=== PATIENT | female | born 1950 | race Caucasian/White ===

== ENCOUNTER 2018-04-29 17:02 | Emergency (ER) | payer OTHER ==
[~2018-04-29] VITALS: Ht 152.4 cm; Wt 56.7 kg
[~2018-04-29 17:02] MED LIST: CLON2TAB PO
[2018-04-29 17:07] VITALS: BP 152/79
--- NOTE | 2018-04-29 17:11 | NUR ---
EKG IN PROGRESS BY MARIA LUISA EDOUARD
--- NOTE | 2018-04-29 17:11 | NUR ---
67 Y/O F PRESENTS TO THE ED W/C/O CHEST PRESSURE ASSOCIATED WITH DIZZINESS AND SOB X 1 WEEK. REPORTS BEING UNDER A LOT STRESS RECENTLY R/T WORK. DENIES N/V; SKIN IS INTACT, PINK/WARM/DRY; AAOX4, PERRL, WITH EVEN AND STEADY GAIT; LUNGS CLEAR BL, BREATHING UNLABORED; HR EVEN AND REGULAR, BL PERIPHERAL PULSES PRESENT; BS ACTIVE X4, NO TENDERNESS TO PALPATION, NO HEPATOSPLENOMEGALLY PALPATED, RESONANT TO PERCUSSION; PT DENIES ANY FEVER, CP, SOB, OR COUGH AT THIS TIME; PT STATES 6/10 PAIN AT THIS TIME; VSS; PATIENT POSITIONED FOR COMFORT; HOB ELEVATED; BEDRAILS UP X2; BED DOWN.
--- NOTE | 2018-04-29 17:14 | NUR ---
AMBULATES TO BED 12 W/ STEADY GAIT
[2018-04-29] MEDS ORDERED: ALPRAZolam 0.5 MG TAB PO ONE (17:20)
[2018-04-29 18:03] LABS: BASOPHILS % (AUTO) 0.5 % (0.0-2.0); EOSINOPHILS # (AUTO) 0.2 K/uL (0-0.4); HEMATOCRIT 41.5 % (36-48); HEMOGLOBIN 13.7 g/dL (12.0-16.0); LYMPHOCYTES % (AUTO) 31.4 % (20.5-51.1); MEAN CORPUSCULAR HEMOGLOBIN 31 pg (27-31); MEAN CORPUSCULAR HGB CONC 33 g/dL (33-37); MEAN CORPUSCULAR VOLUME 94.7 fL (80-94); MONOCYTES # (AUTO) 0.7 K/uL (0.8-1.0); MONOCYTES % (AUTO) 7.3 % (1.7-9.3); NEUTROPHILS # (AUTO) 5.6 K/uL (1.8-7.7); NEUTROPHILS % (AUTO) 58.8 % (42.2-75.2); PLATELET COUNT (AUTO) 248 K/uL (140-450); RED BLOOD CELL COUNT(AUTO) 4.38 MIL/uL (4.20-5.40); RED CELL DISTRIBUTION WIDTH 13.2 % (11.6-13.7); WHITE BLOOD COUNT (AUTO) 9.4 K/uL (4.8-10.8)
--- NOTE | 2018-04-29 18:10 | NUR ---
PT APPEARS TO BE SLEEPING. RR EVEN AND UNLABORED. WILL CONTINUE TO MONITOR
[2018-04-29 18:30] LABS: ALBUMIN 3.8 g/dL (3.4-5.0); ANION GAP 10.2 (8-16); CARBON DIOXIDE 29.8 mmol/L (21-32); CREATININE 0.7 mg/dL (0.6-1.3); TOTAL BILIRUBIN 0.9 mg/dL (0.0-1.0)
--- NOTE | 2018-04-29 19:03 | NUR ---
Patient discharged with v/s stable. Written and verbal after care instructions given and explained. Patient alert, oriented and verbalized understanding of instructions. Ambulatory with steady gait. All questions addressed prior to discharge. ID band removed. Patient advised to follow up with PMD. Rx of VISTARIL given. Patient educated on indication of medication including possible reaction and side effects. Opportunity to ask questions provided and answered.
[2018-04-29 19:04] VITALS: BP 150/80
[2018-04-29 19:25] LABS: PROTHROMBIN TIME 9.9 secs (10.8-13.4)
== END 2018-04-29 19:03 | disposition home or self-care (01) ==
LOC: MED 17:02
DX: F41.0 Panic disorder [episodic paroxysmal anxiety] (principal); R03.0 Elevated blood-pressure reading, without diagnosis of hypertension; Z79.899 Other long term (current) drug therapy
CPT/HCPCS: 36415; 36600; 71045; 80053; 82803; 83880; 84484; 85025; 85379; 85610; 85730; 93005; 99285; Q0092

== ENCOUNTER 2018-06-05 14:20 | Emergency (ER) | payer OTHER ==
[~2018-06-05] VITALS: Ht 152.4 cm; Wt 54.4 kg
[2018-06-05 14:28] VITALS: BP 128/85
--- NOTE | 2018-06-05 14:30 | NUR ---
URINE CUP HANDED TO PT
--- NOTE | 2018-06-05 14:33 | NUR ---
PT PRESENTS TO ED W C/O DYSURIA X 1 DAY. PT ALSO C/O SORE THROAT AND RIGHT EAR PAIN X 1 DAY. PT DENIES ANY OTHER SYMPTOMS. DENIES ANY MEDICAL HX. PT REPORTS TAKING OTC AZO WITH NO RELIEF. RIGHT EAR FREE OF ANY FOREIGN BODY. THROAT IS CLEAR. DENIES SOB. ALL VSS. PENDING MD MCKINNON.
[2018-06-05] MEDS ORDERED: LEVOFLOXACIN 500 MG TAB PO ONE (15:15)
[2018-06-05] MEDS ORDERED: PHENAZOPYRIDINE 100 MG TAB PO ONE (15:15)
--- NOTE | 2018-06-05 15:30 | NUR ---
Patient discharged with v/s stable. Written and verbal after care instructions given and explained. Patient alert, oriented and verbalized understanding of instructions. Ambulatory with steady gait. All questions addressed prior to discharge. ID band removed. Patient advised to follow up with PMD. Rx of PYRIDUM, CIPRO given. Patient educated on indication of medication including possible reaction and side effects. Opportunity to ask questions provided and answered.
[2018-06-05 15:31] VITALS: BP 132/82
== END 2018-06-05 15:30 | disposition home or self-care (01) ==
LOC: MED 14:20
DX: N39.0 Urinary tract infection, site not specified (principal)
CPT/HCPCS: 81002; 81025; 99283

== ENCOUNTER 2019-05-30 05:19 | Emergency (ER) | payer OTHER ==
[~2019-05-30] VITALS: Ht 152.4 cm; Wt 59.6 kg
--- NOTE | 2019-05-30 05:38 | NUR ---
TO ER BED 11
--- NOTE | 2019-05-30 05:40 | NUR ---
68/F PRESENTED TO ED WITH C/O LOWER ABD PRESSURE, URINARY FREQUENCY, URGENCY, DISCOMFORT, BURNING PAIN /. PT STATES SHE WENT TO URGENT CARE YESTERDAY MORNING AND TX FOR UTI. PT RECEIVED AMOXICILLIN AND TOOK FIRST DOSE. PT WAS ALSO GIVEN AZO TO HELP WITH DISCOMFORT BUT REPORTS NO RELIEF. VSS. DENIES PAST MED HX. DENIES RX. DENIES ALLERGIES. WILL CONTINUE TO MONITOR.
--- NOTE | 2019-05-30 05:45 | NUR ---
URINE COLLECTED - VOIDED
[2019-05-30] MEDS: KETOROLAC 30 MG/ML VIAL IM ONE (05:50)
[2019-05-30] MEDS: PHENAZOPYRIDINE 100 MG TAB PO ONE (07:10)
--- NOTE | 2019-05-30 07:15 | NUR ---
Patient discharged with v/s stable. Written and verbal after care instructions given and explained. Patient alert, oriented and verbalized understanding of instructions. Ambulatory with steady gait. All questions addressed prior to discharge. ID band removed. Patient advised to follow up with PMD. Rx of PHENAZOPYRIDINE given. Patient educated on indication of medication including possible reaction and side effects. Opportunity to ask questions provided and answered.
== END 2019-05-30 07:15 | disposition home or self-care (01) ==
LOC: MED 05:19
DX: N39.0 Urinary tract infection, site not specified (principal); Z79.899 Other long term (current) drug therapy
CPT/HCPCS: 81002; 96372; 99283; J1885

== ENCOUNTER 2019-05-31 16:17 | Emergency (ER) | payer OTHER ==
[~2019-05-31] VITALS: Ht 152.4 cm; Wt 59.4 kg
[2019-05-31 16:20] VITALS: BP 175/83
--- NOTE | 2019-05-31 16:34 | NUR ---
WAIT IN LOBBY
--- NOTE | 2019-05-31 17:18 | NUR ---
PATIENT AMBULATED TO BED 9
--- NOTE | 2019-05-31 17:32 | NUR ---
PT SEEN AT URGENT CARE X3 DAYS AGO PRESCIBED CIPRO FOR BLADDER INFECTION. BROUGHT TO ER LAST NIGHT FOR ABD PAIN, GIVEN PAIN MEDS WITH NO RELIEF. PT C/O 06/29 ABD PAIN THAT IS NOW RADIATING TO LOWER BACK. BURNING UPON URINATION, NO HESITENCY NORMAL FREQUENCY. STATES SHE HAD A FEVER LAST NIGHT NONE TODAY. PT HAS NOT TAKEN ANY MEDS FOR PAIN. ABD SOFT, ROUND, NONTENDER. PT SITTING IN BED, RELAXED VSS. MEDHX: DENIES
[2019-05-31] MEDS: SODIUM CHLORIDE FLUSH 10 ML SYR IVF STA ×2 (17:53→18:15)
[2019-05-31 18:24] LABS: BASOPHILS # (AUTO) 0.2 K/uL (0.00-0.22); BASOPHILS % (AUTO) 1.1 % (0.0-2.0); EOSINOPHILS # (AUTO) 0.1 K/uL (0-0.4); EOSINOPHILS % (AUTO) 0.9 % (0.0-4.0); HEMATOCRIT 38.8 % (36-48); LYMPHOCYTES # (AUTO) 1.8 K/uL (2.5-16.5); LYMPHOCYTES % (AUTO) 12.8 % (20.5-51.1); MEAN CORPUSCULAR HEMOGLOBIN 32 pg (27-31); MEAN CORPUSCULAR HGB CONC 34 g/dL (33-37); MEAN CORPUSCULAR VOLUME 93.7 fL (80-94); MONOCYTES # (AUTO) 1.2 K/uL (0.8-1.0); MONOCYTES % (AUTO) 8.4 % (1.7-9.3); NEUTROPHILS % (AUTO) 76.8 % (42.2-75.2); PLATELET COUNT (AUTO) 243 K/uL (140-450); RED BLOOD CELL COUNT(AUTO) 4.14 MIL/uL (4.20-5.40); RED CELL DISTRIBUTION WIDTH 13.2 % (11.6-13.7); WHITE BLOOD COUNT (AUTO) 14.4 K/uL (4.8-10.8)
[2019-05-31] MEDS ORDERED: KETOROLAC 30 MG/ML VIAL IVP ONE (18:35)
[2019-05-31 18:53] LABS: ANION GAP 13.7 (8-16); CARBON DIOXIDE 25.9 mmol/L (21-32); CREATININE 0.8 mg/dL (0.6-1.3); POTASSIUM 3.6 mmol/L (3.5-5.1)
[2019-05-31 18:54] LABS: ALBUMIN 3.4 g/dL (3.4-5.0)
[2019-05-31 19:18] LABS: BILIRUBIN,URINE NEGATIVE (NEGATIVE); BLOOD, URINE 3+ (NEGATIVE); COLOR,URINE YELLOW (YELLOW); LEUKOCYTE ESTERASE ,URINE 3+ (NEGATIVE); NITRITE, URINE NEGATIVE (NEGATIVE); UGLUCOSE NEGATIVE (NEGATIVE)
[2019-05-31 19:19] LABS: APPEARANCE,URINE CLOUDY (CLEAR)
[2019-05-31 19:32] LABS: RBC,URINE >100 /HPF (0-5)
--- NOTE | 2019-05-31 19:56 | NUR ---
PT TAKEN TO CT
--- NOTE | 2019-05-31 20:06 | NUR ---
PT MOVED TO CHAIR SITTING IN HALLWAY. VSS
--- NOTE | 2019-05-31 20:10 | NUR ---
PT AMBULATED TO BED #2
--- NOTE | 2019-05-31 20:15 | NUR ---
PT AMBULATED TO THE RESTROOM INDEPENDANTLY
--- NOTE | 2019-05-31 20:16 | NUR ---
CHECKED ON PT. INSTRUCTED HER NOT TO TAKE THE MEDS FROM HOME UNTILL SEEN BY . PT C/O PAIN 04/29. STATES WAS GIVEN PAIN SHOT AT THE LOBBY AT 1630. PT RESTING AT THE BED. WILL CONTINUE TO MONITOR PT.
--- NOTE | 2019-05-31 20:29 | NUR ---
Dr. Solitario examining patient.
[2019-05-31] MEDS ORDERED: NACL 0.9% 1,000 ML IV ONE (20:45)
[2019-05-31] MEDS ORDERED: cefTRIAXone 1,000 MG VIAL ONE (20:48)
--- NOTE | 2019-05-31 21:21 | NUR ---
REPORT GIVEN TO PM RN. PT STABLE.
[2019-05-31] MEDS ORDERED: MORPHINE SULFATE 2 MG/ML SYR IVP ONE (22:25)
--- NOTE | 2019-05-31 22:42 | NUR ---
PATIENT IS SLEEPING AT THIS TIME.
--- NOTE | 2019-05-31 23:06 | NUR ---
PATIENT AMBULATED TO BATHROOM.
[2019-06-01 00:10] VITALS: BP 141/82
--- NOTE | 2019-06-01 00:10 | NUR ---
Patient discharged with v/s stable. Written and verbal after care instructions given and explained. Patient alert, oriented and verbalized understanding of instructions. Ambulatory with steady gait. All questions addressed prior to discharge. ID band removed. Patient advised to follow up with PMD. Rx of CEPHALEXIN, TRAMADOL given. Patient educated on indication of medication including possible reaction and side effects. Opportunity to ask questions provided and answered.
--- NOTE | 2019-06-03 13:33 | NUR ---
Urine cultures positive and shown to Dr. Craig. Patient sent home home Cephalexin and C&S does not show up Keflex. Dr. Craig is writing a new prescription for Bactrim DS BID x10 days. Pt contacted and spoke to patient. I advised the patient about her results and let her know I would be calling in a prescription for new abx to the pharmacy of her choice. Pharmacy pt would like rx called to [facility] [phone]. I advised patient to follow up with pharmacy in approximately 30 minutes to get an update on her rx. Pt verbalized understanding. Rx called into pharmacist.
== END 2019-06-01 00:10 | disposition home or self-care (01) ==
LOC: MED 16:17
DX: N30.90 Cystitis, unspecified without hematuria (principal); Z79.899 Other long term (current) drug therapy
CPT/HCPCS: 36415; 74176; 80053; 81001; 81025; 83690; 85025; 87086; 87186; 96365; 96375; 99284; J0696; J1885; J2270; J7030

== ENCOUNTER 2020-06-22 07:14 | Emergency (ER) | payer OTHER, SELFPAY ==
[~2020-06-22] VITALS: Ht 152.4 cm; Wt 58.1 kg
[2020-06-22 07:26] VITALS: BP 167/89
[2020-06-22] MEDS ORDERED: ACETAMINOPHEN 325 MG TAB PO ONE (07:40)
[2020-06-22] MEDS ORDERED: IBUPROFEN 600 MG TAB PO ONE (07:40)
[2020-06-22] MEDS ORDERED: ONDANSETRON 4 MG ODT PO ONE (07:40)
[2020-06-22] MEDS ORDERED: IBUPROFEN 600 MG TAB ONE (07:45)
[2020-06-22] MEDS ORDERED: ACETAMINOPHEN 325 MG TAB ONE (07:46)
[2020-06-22] MEDS ORDERED: ONDANSETRON 4 MG ODT ONE (07:46)
[2020-06-22 08:23] LABS: BASOPHILS # (AUTO) 0.1 K/uL (0.00-0.22); EOSINOPHILS # (AUTO) 0.2 K/uL (0-0.4); EOSINOPHILS % (AUTO) 2.5 % (0.0-4.0); HEMATOCRIT 40.9 % (36-48); HEMOGLOBIN 13.7 g/dL (12.0-16.0); LYMPHOCYTES # (AUTO) 1.8 K/uL (2.5-16.5); LYMPHOCYTES % (AUTO) 21.1 % (20.5-51.1); MEAN CORPUSCULAR HEMOGLOBIN 32 pg (27-31); MEAN CORPUSCULAR HGB CONC 33 g/dL (33-37); MEAN CORPUSCULAR VOLUME 95.3 fL (80-94); MONOCYTES # (AUTO) 0.6 K/uL (0.8-1.0); MONOCYTES % (AUTO) 6.9 % (1.7-9.3); NEUTROPHILS # (AUTO) 5.7 K/uL (1.8-7.7); NEUTROPHILS % (AUTO) 68.5 % (42.2-75.2); PLATELET COUNT (AUTO) 238 K/uL (140-450); RED CELL DISTRIBUTION WIDTH 12.6 % (11.6-13.7); WHITE BLOOD COUNT (AUTO) 8.4 K/uL (4.8-10.8)
[2020-06-22 09:16] LABS: ALBUMIN 3.7 g/dL (3.4-5.0); ANION GAP 14.4 (8-16); CARBON DIOXIDE 22.9 mmol/L (21-32); CREATININE 0.7 mg/dL (0.6-1.3); POTASSIUM 3.3 mmol/L (3.5-5.1); TOTAL BILIRUBIN 0.7 mg/dL (0.0-1.0)
[2020-06-22 10:17] VITALS: BP 162/80
== END 2020-06-22 10:15 | disposition home or self-care (01) ==
LOC: MED 07:14
DX: J32.9 Chronic sinusitis, unspecified (principal); H66.93 Otitis media, unspecified, bilateral; Z90.49 Acquired absence of other specified parts of digestive tract
CPT/HCPCS: 36415; 80053; 83690; 85025; 99284; Q0162

== ENCOUNTER 2020-08-06 09:58 | Emergency (ER) | payer OTHER, SELFPAY ==
[~2020-08-06] VITALS: Ht 157.5 cm; Wt 66.2 kg
[2020-08-06 10:06] VITALS: BP 154/79
--- NOTE | 2020-08-06 10:11 | NUR ---
Pt in tent for covid precaution
--- NOTE | 2020-08-06 10:12 | NUR ---
69 y/o female from home c/o sore thoat and bilateral ear discomfort since 07/31. Denies cough/sob. Afebrile upon arrival. RR even and unlabored. Awake and alert. VSS medhx: Denies
--- NOTE | 2020-08-06 10:13 | NUR ---
Dr Rivers in tent examining patient.
--- NOTE | 2020-08-06 10:24 | NUR ---
Covid swab collected and sent to lab.
[2020-08-06 10:32] VITALS: BP 154/79
--- NOTE | 2020-08-06 10:33 | NUR ---
Patient discharged with v/s stable. Written and verbal after care instructions given and explained. Patient verbalized understanding. Ambulatory with steady gait. All questions addressed prior to discharge. Advised to follow up with PMD.
== END 2020-08-06 10:33 | disposition home or self-care (01) ==
LOC: MED 09:58
DX: J02.9 Acute pharyngitis, unspecified (principal); Z20.828 Contact with and (suspected) exposure to other viral communicable diseases
CPT/HCPCS: 99283; U0003

== ENCOUNTER 2021-03-01 07:29 | Emergency (ER) | payer OTHER ==
[~2021-03-01] VITALS: Ht 152.4 cm; Wt 58.5 kg
[2021-03-01 07:30] VITALS: BP 156/79
--- NOTE | 2021-03-01 07:51 | NUR ---
70 YEAR OLD FEMALE COMPLAINS OF RIGHT NECK PAIN X 3 DAYS. PT STATES PAIN RADIATES TO RIGHT EAR, BUT DENIES ANY TRAUMA. PT DENIES SOB. PT AOX4, BREATHING EVEN AND UNLABORED, SKIN WARM AND DRY. BED IN LOWEST POSITION, LOCKED, BED RAIL UPX1. PMH - HLD ALLERGIES - NKA
[2021-03-01] MEDS ORDERED: ACETAMINOPHEN EXTRA STRENGTH 500 MG TAB PO ONE (07:55)
[2021-03-01] MEDS ORDERED: KETOROLAC 15 MG/ML VIAL IM ONE (07:55)
[2021-03-01] MEDS ORDERED: NAPR-54 PO (08:45)
[2021-03-01] MEDS ORDERED: ACET-10509 PO (08:45)
--- NOTE | 2021-03-01 08:55 | NUR ---
APPLIED FOAM CERVICAL COLLAR WIHTOU ANY ISSUES
--- NOTE | 2021-03-01 09:15 | NUR ---
Patient discharged with v/s stable. Written and verbal after care instructions about cervical sprain and sprain rehab given and explained. Patient alert, oriented and verbalized understanding of instructions. Ambulatory with steady gait. All questions addressed prior to discharge. ID band removed. Patient advised to follow up with PMD. Rx of tylenol and naprosyn given. Patient educated on indication of medication including possible reaction and side effects. Opportunity to ask questions provided and answered.
[2021-03-01 09:17] VITALS: BP 159/68
== END 2021-03-01 09:15 | disposition home or self-care (01) ==
LOC: MED 07:29
DX: S16.1XXA Strain of muscle, fascia and tendon at neck level, initial encounter (principal); Z79.899 Other long term (current) drug therapy; X58.XXXA Exposure to other specified factors, initial encounter; Y93.89 Activity, other specified; Y92.89 Other specified places as the place of occurrence of the external cause; Y99.8 Other external cause status
CPT/HCPCS: 96372; 99283; J1885

== ENCOUNTER 2021-09-18 08:03 | Emergency (ER) | payer OTHER ==
[~2021-09-18] VITALS: Ht 152.4 cm; Wt 55.8 kg
[~2021-09-18 08:03] MED LIST changes: +ACET-10509 PO; +NAPR-54 PO
[2021-09-18 08:23] VITALS: BP 157/78
--- NOTE | 2021-09-18 08:25 | NUR ---
pt swabbed for novel and influenza
[2021-09-18] MEDS ORDERED: ROB PO (08:48)
[2021-09-18 09:01] VITALS: BP 157/78
--- NOTE | 2021-09-18 09:02 | NUR ---
Patient discharged with v/s stable. Written and verbal after care instructions given and explained. Patient alert, oriented and verbalized understanding of instructions. Ambulatory with steady gait. All questions addressed prior to discharge. ID band removed. Patient advised to follow up with PMD. Rx of guaifenesin (sent) given. Patient educated on indication of medication including possible reaction and side effects. Opportunity to ask questions provided and answered.
== END 2021-09-18 09:02 | disposition home or self-care (01) ==
LOC: MED 08:03
DX: B34.9 Viral infection, unspecified (principal); Z20.822 Contact with and (suspected) exposure to COVID-19; R11.10 Vomiting, unspecified; Z79.899 Other long term (current) drug therapy
CPT/HCPCS: 87804; 99283; U0003

== ENCOUNTER 2023-03-05 10:58 | Emergency (ER) | payer OTHER ==
[~2023-03-05] VITALS: Ht 152.4 cm; Wt 58.1 kg
[~2023-03-05 10:58] MED LIST changes: +ROB PO
[2023-03-05 11:10] VITALS: BP 137/82
--- NOTE | 2023-03-05 11:16 | NUR ---
pt ambulatory to bed 01
--- NOTE | 2023-03-05 11:36 | NUR ---
Pt bibs for cough and soar throat for several days. Pt also complains of ear aches. Pt has been to urgent care for the same reason. Pt is a/o x 4, vss, of acute distress, breathing equal and unlabored, speech clear, no ss of acute distres, breathing equal and unlabored, speech clear.
[2023-03-05] MEDS ORDERED: KETOROLAC 15 MG/ML VIAL IM ONE (11:40)
[2023-03-05] MEDS ORDERED: BENZ200C4 PO (12:21)
== END 2023-03-05 12:37 | disposition home or self-care (01) ==
LOC: MED 10:58
DX: J06.9 Acute upper respiratory infection, unspecified (principal); B34.9 Viral infection, unspecified; H92.03 Otalgia, bilateral; M75.31 Calcific tendinitis of right shoulder; I10 Essential (primary) hypertension; Z90.49 Acquired absence of other specified parts of digestive tract; Z79.899 Other long term (current) drug therapy
CPT/HCPCS: 71045; 73030; 96372; 99284; J1885

== ENCOUNTER 2023-08-20 23:34 | Emergency (ER) | payer OTHER ==
[~2023-08-20] VITALS: Ht 154.9 cm; Wt 54.4 kg
[~2023-08-20 23:34] MED LIST changes: +BENZ200C4 PO; +CLON-929 PO; -CLON2TAB PO
[2023-08-21] VITALS: BP 166/84; PULSE 80; RESP 17; TEMP 208.2; TEMP 97.9; O2SAT 98
[2023-08-21] MEDS ORDERED: NACL 0.9% 1,000 ML IV ONE (00:45)
[2023-08-21] MEDS ORDERED: ONDANSETRON 4 MG/2 ML VIAL IVP ONE (00:45)
[2023-08-21] MEDS ORDERED: DICYCLOMINE 20 MG/2 ML VIAL IM ONE (00:45)
[2023-08-21 01:42] VITALS: BP 180/86; PULSE 74; RESP 16; O2SAT 97
[2023-08-21 01:58] LABS: BASOPHILS # (AUTO) 0.1 K/uL (0.00-0.22); BASOPHILS % (AUTO) 0.9 % (0.0-2.0); EOSINOPHILS % (AUTO) 0.3 % (0.0-4.0); HEMATOCRIT 38.2 % (36-48); LYMPHOCYTES # (AUTO) 1.7 K/uL (2.5-16.5); MEAN CORPUSCULAR HEMOGLOBIN 32 pg (27-31); MEAN CORPUSCULAR HGB CONC 34 g/dL (33-37); MEAN CORPUSCULAR VOLUME 93.6 fL (80-94); MONOCYTES # (AUTO) 0.2 K/uL (0.8-1.0); MONOCYTES % (AUTO) 2.8 % (1.7-9.3); NEUTROPHILS # (AUTO) 6.8 K/uL (1.8-7.7); PLATELET COUNT (AUTO) 268 K/uL (140-450); RED BLOOD CELL COUNT(AUTO) 4.08 MIL/uL (4.20-5.40); RED CELL DISTRIBUTION WIDTH 12.8 % (11.6-13.7); WHITE BLOOD COUNT (AUTO) 8.9 K/uL (4.8-10.8)
[2023-08-21 02:21] LABS: ALANINE AMINOTRANSFERASE 36 U/L (12-78); ALBUMIN 3.9 g/dL (3.4-5.0); ALKALINE PHOSPHATASE 91 U/L (50-136); ANION GAP 16.3 (8-16); ASPARTATE AMINOTRANSFERASE 26 U/L (15-37); CALCIUM 8.7 mg/dL (8.5-10.1); CARBON DIOXIDE 25.8 mmol/L (21-32); CHLORIDE 104 mmol/L (98-107); CREATININE 0.7 mg/dL (0.6-1.3); GLUCOSE 135 mg/dL (74-106); LIPASE 41 U/L (16-77); MAGNESIUM 1.9 mg/dL (1.8-2.4); PHOSPHORUS 3.6 mg/dL (2.5-4.9); POTASSIUM 3.1 mmol/L (3.5-5.1); SODIUM SERUM 143 mmol/L (136-145); TOTAL BILIRUBIN 0.7 mg/dL (0.0-1.0); TOTAL PROTEIN, SERUM 7.9 g/dL (6.4-8.2); UREA NITROGEN, BLOOD 8 mg/dL (7-18)
[2023-08-21] MEDS ORDERED: ONDA-188 SL ×2 (02:58→02:59)
[2023-08-21] MEDS ORDERED: POTASSIUM CHLORIDE 10 MEQ TABER PO ONE (03:05)
== END 2023-08-21 03:22 | disposition home or self-care (01) ==
LOC: MED 23:34
DX: A08.4 Viral intestinal infection, unspecified (principal); E87.6 Hypokalemia; A05.9 Bacterial foodborne intoxication, unspecified; Z79.899 Other long term (current) drug therapy
CPT/HCPCS: 36415; 80053; 83690; 83735; 84100; 84484; 85025; 93005; 96361; 96372; 96374; 99284; J0500; J2405; J7030

== ENCOUNTER 2024-05-28 11:13 | Emergency (ER) | payer OTHER ==
[~2024-05-28] VITALS: Ht 152.4 cm; Wt 58.1 kg
[~2024-05-28 11:13] MED LIST changes: -ACET-10509 PO; +ACET500T99 PO; +CLON-575 PO; -CLON-929 PO; +NAPR-337 PO; -NAPR-54 PO; +ONDA-188 SL
[2024-05-28 11:19] VITALS: BP 181/80; PULSE 80; RESP 20; TEMP 97.6; O2SAT 98
[2024-05-28] MEDS: NACL 0.9% 1,000 ML IV ONE (12:02)
[2024-05-28] MEDS: ONDANSETRON 4 MG/2 ML VIAL IVP ONE (12:04)
[2024-05-28] MEDS: KETOROLAC 30 MG/ML VIAL IVP ONE (12:04)
[2024-05-28 12:18] LABS: BASOPHILS # (AUTO) 0.1 K/uL (0.00-0.22); EOSINOPHILS # (AUTO) 0.2 K/uL (0-0.4); EOSINOPHILS % (AUTO) 2.7 % (0.0-4.0); HEMATOCRIT 41.2 % (36-48); HEMOGLOBIN 13.8 g/dL (12.0-16.0); LYMPHOCYTES % (AUTO) 31.5 % (20.5-51.1); MEAN CORPUSCULAR HEMOGLOBIN 32 pg (27-31); MEAN CORPUSCULAR HGB CONC 34 g/dL (33-37); MEAN CORPUSCULAR VOLUME 94.2 fL (80-94); MONOCYTES # (AUTO) 0.9 K/uL (0.8-1.0); MONOCYTES % (AUTO) 9.6 % (1.7-9.3); NEUTROPHILS # (AUTO) 5.2 K/uL (1.8-7.7); NEUTROPHILS % (AUTO) 55.2 % (42.2-75.2); PLATELET COUNT (AUTO) 254 K/uL (140-450); RED BLOOD CELL COUNT(AUTO) 4.38 MIL/uL (4.20-5.40); RED CELL DISTRIBUTION WIDTH 13.1 % (11.6-13.7); WHITE BLOOD COUNT (AUTO) 9.4 K/uL (4.8-10.8)
[2024-05-28] MEDS: ALUMINUM HYD/MAG/SIMETHICONE 30 ML UDC PO ONE (12:36)
[2024-05-28] MEDS: DICYCLOMINE HCL LIQUID 10 MG/5 ML UDC PO ONE (12:36)
[2024-05-28 12:37] LABS: ANION GAP 13.1 (8-16); CALCIUM 9.4 mg/dL (8.5-10.1); CARBON DIOXIDE 26.7 mmol/L (21-32); CHLORIDE 101 mmol/L (98-107); CREATININE 0.7 mg/dL (0.6-1.3); GLUCOSE 96 mg/dL (74-106); POTASSIUM 3.8 mmol/L (3.5-5.1); SODIUM SERUM 137 mmol/L (136-145); UREA NITROGEN, BLOOD 15 mg/dL (7-18)
[2024-05-28 12:44] LABS: ALANINE AMINOTRANSFERASE 30 U/L (12-78); ALBUMIN 3.8 g/dL (3.4-5.0); ALKALINE PHOSPHATASE 89 U/L (50-136); ASPARTATE AMINOTRANSFERASE 20 U/L (15-37); BILIRUBIN,DIRECT 0.1 mg/dL (0.0-0.3); LIPASE 54 U/L (16-77); TOTAL BILIRUBIN 0.6 mg/dL (0.0-1.0); TOTAL PROTEIN, SERUM 8.1 g/dL (6.4-8.2)
[2024-05-28 13:51] LABS: APPEARANCE,URINE CLEAR (CLEAR); BILIRUBIN,URINE NEGATIVE (NEGATIVE); BLOOD, URINE NEGATIVE (NEGATIVE); COLOR,URINE YELLOW (YELLOW); LEUKOCYTE ESTERASE ,URINE 1+ (NEGATIVE); NITRITE, URINE NEGATIVE (NEGATIVE); PROTEIN,URINE NEGATIVE (NEGATIVE); UGLUCOSE NEGATIVE (NEGATIVE); UROBILINOGEN,URINE 0.2 EU/dL (0.2 - 1)
[2024-05-28 14:09] LABS: BACTERIA,URINE 2+ /HPF (None Seen); RBC,URINE NONE SEEN /HPF (0-5); SQUAMOUS EPITHELIAL CELL,UR 0-3 (FEW) /LPF (0-3 (FEW)); WBC,URINE 16-25 (MOD) /HPF (0-5)
[2024-05-28] MEDS ORDERED: ONDA-188 PO (14:29)
[2024-05-28] MEDS ORDERED: DICY-209 PO (14:29)
[2024-05-28] MEDS ORDERED: CEPH-588 PO (14:29)
[2024-05-28] MEDS ORDERED: cefTRIAXone 1,000 MG VIAL ONE (14:40)
[2024-05-28 15:05] VITALS: BP 112/62; PULSE 78; RESP 16; TEMP 98.1; O2SAT 99
== END 2024-05-28 15:05 | disposition home or self-care (01) ==
LOC: MED 11:13
DX: A08.4 Viral intestinal infection, unspecified (principal); N39.0 Urinary tract infection, site not specified; I10 Essential (primary) hypertension; E78.5 Hyperlipidemia, unspecified; Z79.899 Other long term (current) drug therapy
CPT/HCPCS: 36415; 80048; 80076; 81001; 83690; 84484; 85025; 87086; 87186; 93005; 96361; 96365; 96375; 99284; J0696; J1885; J2405; J7030